=== PATIENT | female | born 1995 | race Caucasian/White ===

== ENCOUNTER 2020-07-03 12:59 | Outpatient (REF) | payer SELFPAY ==
[2020-07-03 22:09] LABS: HCT 40.5 % (36.0-46.0); HGB 12.8 g/dL (11.2-15.7); MCH 26.8 pg (27.0-33.0); MCHC 31.6 % (32.0-36.0); MCV 84.7 fL (80-95); MPV 10.8 fL (8.0-11.0); Platelet Count 404 10^3/uL (130-400); RBC 4.78 10^6/uL (3.93-5.22); RDW 15.1 % (11.7-14.6); RDW-SD 46.8 fL; WBC 5.87 10^3/uL (4.4-10.8)
[2020-07-03 22:39] LABS: Hemoglobin A1C 6.1 % (<5.7)
[2020-07-03 22:42] LABS: Vitamin D 25 Total 7.4 ng/ml (30-100)
[2020-07-03 22:47] LABS: ALT 45 U/L (14-59); AST 21 U/L (15-37); Albumin 4.1 g/dL (3.4-5.0); Alkaline Phosphatase 103 U/L (46-116); Anion Gap 10.1 mmol/L (3-11); BUN 11 mg/dL (7-18); Bilirubin, Total 0.7 mg/dL (0.2-1.0); CO2 24.9 mmol/L (21.0-32.0); CREATININE 0.8 mg/dL (0.55-1.02); Calcium 9.5 mg/dL (8.5-10.1); Calculated LDL 149 mg/dL (<100); Chloride 105 mmol/L (98-107); Cholesterol 201 mg/dL (<200); Glucose 90 mg/dL (74-106); HDL Cholesterol 39 mg/dL (40-60); Potassium 4.3 mmol/L (3.5-5.1); Sodium 140 mmol/L (136-145); TSH (W/Ref FT4) 2.17 uIU/mL (0.36-3.74); Total Protein 8.5 g/dL (6.4-8.2); Triglyceride 66 mg/dL (<150); Vitamin B12 843 pg/mL (193-986)
[2020-07-07 14:45] LABS: Testosterone, Total 124 ng/dL (8-60)
== END 2020-07-03 13:00 | disposition home or self-care (01) ==
LOC: NCHCN 12:59
PROVIDERS: Visit Provider Nurse Practitioner Family
DX: F32.9 Major depressive disorder, single episode, unspecified (principal); Z00.00 Encounter for general adult medical examination without abnormal findings; Z13.1 Encounter for screening for diabetes mellitus; Z13.220 Encounter for screening for lipoid disorders; L68.0 Hirsutism; Z13.21 Encounter for screening for nutritional disorder
CPT/HCPCS: 80053; 80061; 82306; 84402; 84403; 85027; 82607; 83036; 84443

== ENCOUNTER 2021-11-13 18:23 | Outpatient (REF) | payer OTHER, SELFPAY ==
--- NOTE | 2021-11-13 13:45 | PAPFT_PTH ---
PATIENT: Lobo Remy [id number] AGE/SX: 25/F ROOM: RE11/13/[address]: Parul Aldridge : 1995 BED: DIS: 11/13/2021 SPEC #: [id number] RECD: 11/14/21 12:24 STATUS: JORGE LUIS REPrabhakar #: [id number] ANDREA: 11/13/21 13:[address]: Parul Aldridge DEPT: [facility] Cytology RECD BY: Aarti Mendoza ENTERED: 11/14/21 12:24 SP TYPE: PAPFT KIMI DR: Unknown,Unknown Tissues: 1 - CX/ENDOCX FOR PAP SMEARS Procedures: PAP THIN PREP/[facility] Screening Comments: [id number] (CHLAMYDIA/GC)
[2021-11-13 21:10] LABS: ALT 43 U/L (14-59); AST 20 U/L (15-37); Albumin 3.7 g/dL (3.4-5.0); Alkaline Phosphatase 143 U/L (46-116); BUN 6 mg/dL (7-18); Bilirubin, Total 0.4 mg/dL (0.2-1.0); CREATININE 0.8 mg/dL (0.55-1.02); Calcium 8.7 mg/dL (8.5-10.1); Chloride 102 mmol/L (98-107); Glucose 85 mg/dL (74-106); Potassium 3.9 mmol/L (3.5-5.1); Sodium 136 mmol/L (136-145); Total Protein 7.9 g/dL (6.4-8.2)
[2021-11-13 21:24] LABS: Calculated LDL 141 mg/dL (<100); Cholesterol 202 mg/dL (<200); HDL Cholesterol 42 mg/dL (40-60); Triglyceride 99 mg/dL (<150)
[2021-11-15 21:29] LABS: Chlamydia Result Negative (Negative); GC Result Negative (Negative)
== END 2021-11-13 18:24 | disposition home or self-care (01) ==
LOC: NCHCN 18:23
PROVIDERS: Visit Provider Nurse Practitioner Family
DX: Z00.00 Encounter for general adult medical examination without abnormal findings (principal); E11.9 Type 2 diabetes mellitus without complications; E66.9 Obesity, unspecified; E78.5 Hyperlipidemia, unspecified; Z12.4 Encounter for screening for malignant neoplasm of cervix; Z11.3 Encounter for screening for infections with a predominantly sexual mode of transmission
CPT/HCPCS: 80053; 80061; 87491; 87591; 88142; 83036

== ENCOUNTER 2021-12-31 16:53 | Outpatient (REF) | payer OTHER, SELFPAY ==
[2021-12-31 21:01] LABS: ALT 34 U/L (14-59); AST 21 U/L (15-37); Albumin 3.7 g/dL (3.4-5.0); Alkaline Phosphatase 128 U/L (46-116); Anion Gap 8.5 mmol/L (3-11); BUN 9 mg/dL (7-18); Bilirubin, Total 0.7 mg/dL (0.2-1.0); CO2 29.5 mmol/L (21.0-32.0); CREATININE 0.8 mg/dL (0.55-1.02); Calcium 9.6 mg/dL (8.5-10.1); Chloride 104 mmol/L (98-107); Estimated GFR 104.15 (mL/min/1.73m2); Glucose 75 mg/dL (74-106); Potassium 4.3 mmol/L (3.5-5.1); Sodium 142 mmol/L (136-145); Total Protein 8.2 g/dL (6.4-8.2)
[2021-12-31 21:23] LABS: Vitamin D 25 Total 11.1 ng/mL (30-100)
[2022-01-01 17:34] LABS: Albumin ug/mg Crea 23 (<30); Creatinine, Ur 387.1 mg/dL (See Note)
== END 2021-12-31 16:54 | disposition home or self-care (01) ==
LOC: NCHCN 16:53
PROVIDERS: Visit Provider Nurse Practitioner Family
DX: E11.9 Type 2 diabetes mellitus without complications (principal); R05.8 Other specified cough; I49.9 Cardiac arrhythmia, unspecified; R74.8 Abnormal levels of other serum enzymes; E55.9 Vitamin D deficiency, unspecified; G47.33 Obstructive sleep apnea (adult) (pediatric)
CPT/HCPCS: 80053; 82306; 82043; 82570

== ENCOUNTER 2022-03-19 18:58 | Outpatient (REF) | payer OTHER, SELFPAY ==
[2022-03-19 17:18] LABS: ALT 40 U/L (14-59); AST 24 U/L (15-37); Albumin 3.8 g/dL (3.4-5.0); Alkaline Phosphatase 105 U/L (46-116); Anion Gap 7.2 mmol/L (3-11); BUN 9 mg/dL (7-18); Bilirubin, Total 0.6 mg/dL (0.2-1.0); CO2 29.8 mmol/L (21.0-32.0); CREATININE 0.9 mg/dL (0.55-1.02); Calcium 9.5 mg/dL (8.5-10.1); Chloride 102 mmol/L (98-107); Estimated GFR 90.42 (mL/min/1.73m2); Glucose 92 mg/dL (74-106); Potassium 3.4 mmol/L (3.5-5.1); Sodium 139 mmol/L (136-145); Total Protein 8.1 g/dL (6.4-8.2)
[2022-03-19 17:39] LABS: Vitamin D 25 Total 17.6 ng/mL (30-100)
== END 2022-03-19 18:59 | disposition home or self-care (01) ==
LOC: NCHCN 18:58
PROVIDERS: Visit Provider Nurse Practitioner Family
DX: R74.8 Abnormal levels of other serum enzymes (principal)
CPT/HCPCS: 80053; 82306